=== PATIENT | female | born 1995 | race Caucasian/White ===

== ENCOUNTER 2017-09-06 15:33 | Emergency (ER) | payer OTHER ==
--- NOTE | 2017-09-06 16:06 | UC ---
Laceration HPI - HPI Summary HPI Summary: 22 year old female presents with complains of right hand laceration. - History Of Current Complaint Stated Complaint: RIGHT HAND LAC Time Seen by Provider: 09/06/17 16:05 Hx Obtained From: Patient Laceration Location: Hand - right hand Mechanism Of Injury: Sharp Trauma Onset/Duration: Sudden Onset Severity: Moderate Pain Scale Used: 0-10 Numeric - 8 - Allergies/Home Medications Allergies/Adverse Reactions: Allergies Allergy/AdvReac Type Severity Reaction Status Date / Time Amoxicillin Allergy Rash Verified 09/06/17 16:20 Home Medications: Home Medications Norethindrone Acet & Eth Estra [Microgestin 1.5/30 1.5-30 mg-Mcg] 1 tab PO DAILY 09/06/17 [History Confirmed 09/06/17] PMH/Surg Hx/FS Hx/Imm Hx Previously Healthy: Yes Review of Systems Constitutional: Negative Skin: Other - right hand laceration Eyes: Negative ENT: Negative Respiratory: Negative Cardiovascular: Negative Gastrointestinal: Negative Genitourinary: Negative Motor: Negative Neurovascular: Negative Musculoskeletal: Negative Neurological: Negative Psychological: Negative All Other Systems Reviewed And Are Negative: Yes Physical Exam Triage Information Reviewed: Yes Vital Signs Reviewed: Yes Eye Exam: Normal ENT Exam: Normal Dental Exam: Normal Neck exam: Normal Neck: Positive: 1 Respiratory Exam: Normal Cardiovascular Exam: Normal Abdominal Exam: Normal Musculoskeletal Exam: Normal Neurological Exam: Normal Psychological Exam: Normal Skin: Positive: Other - right hand laceration Laceration Repair - Laceration Repair 1 : No Repair Necessary - surface cut right ahnd 5 to 7.5 cm Laceration Course/Dx - Differential Dx - Laceration/Wound Provider Diagnoses: right hand laceration 5 to 7.5 cm Discharge - Discharge Plan Condition: Stable Disposition: HOME Prescriptions: DOXYcycline CAP(*) [DOXYcycline 100MG CAP(*)] 100 mg PO BID #[id number] Patient Education Materials: Laceration (ED) Referrals: No Primary Care Phys,NOPCP [Primary Care Provider] -
[2017-09-06] MEDS ORDERED: Lidocaine 1% MPF* 2 ML VIAL INJ ONE ×2 (16:08)
[2017-09-06] MEDS ORDERED: Gelfoam 12-7 ADSORBABL SPONGE* 1 EA SPONGE TOPICAL ONE (16:19)
[2017-09-06 16:20] VITALS: BP 113/79
[2017-09-06] MEDS ORDERED: Tetan/Diph/Pertus SYR(Tdap)* 0.5 ML SYR(BOOSTRIX) use SYR IM ONE (16:22)
== END 2017-09-06 17:25 | disposition home or self-care (01) ==
LOC: UCCORT 15:33
DX: S61.411A Laceration without foreign body of right hand, initial encounter (principal); W26.9XXA Contact with unspecified sharp object(s), initial encounter; Y93.9 Activity, unspecified; Y92.9 Unspecified place or not applicable; Z23 Encounter for immunization; Z32.02 Encounter for pregnancy test, result negative; Z88.1 Allergy status to other antibiotic agents
CPT/HCPCS: 84702; 90471; 90715; 99202; A9270-GY; G0463